=== PATIENT | female | born 1990 | race American Indian/Alaskan Native ===

== ENCOUNTER 2018-07-19 13:35 | Inpatient (IN) | payer MEDICAID ==
--- NOTE | 2018-07-19 14:12 | C.PDOC ---
History Of Present Illness 27 year old female with a PMHx of bipolar disorder brought in by EMS complaining of feeling depressed. She denies any suicidal or homicidal ideation. On arrival to the ED patient was found to be tachycardic, with HR in the 140s. In triage patient denied any drug or alcohol use. When asked if she has any palpitations or pain, patient is not offering any other information. Patient is resting comfortably on stretcher, refusing to answer further questions. <Mary Paul - Last Filed: 07/19/18 19:04> History Per: Patient History/Exam Limitations: other (uncooperative) Onset/Duration Of Symptoms: Days Current Symptoms Are (Timing): Still Present Associated Symptoms: Depression. denies: Suicidal Thoughts, Suicidal Plan <Mary Paul - Last Filed: 07/19/18 19:04> <Otoniel Cruz - Last Filed: 07/19/18 19:51> Time Seen by Provider: 07/19/18 13:40 Chief Complaint (Nursing): Psychiatric Evaluation Past Medical History Reviewed: Historical Data, Nursing Documentation, Vital Signs Vital Signs: Last Vital Signs Temp 98.7 F 07/19/18 13:37 Pulse 144 H 07/19/18 13:37 Resp 16 07/19/18 13:37 BP 139/98 H 07/19/18 13:37 Pulse Ox 99 07/19/18 13:37 - Medical History PMH: Bipolar Disorder Surgical History: No Surg Hx Family History: States: Unknown Family Hx - Social History Hx Tobacco Use: No Hx Alcohol Use: Yes Hx Substance Use: No - Immunization History Hx Tetanus Toxoid Vaccination: No Hx Influenza Vaccination: No Hx Pneumococcal Vaccination: No <Mary Paul - Last Filed: 07/19/18 19:04> Vital Signs: Last Vital Signs Temp 98.7 F 07/19/18 13:37 Pulse 99 H 07/19/18 17:15 Resp 11 L 07/19/18 17:15 BP 112/84 07/19/18 17:15 Pulse Ox 99 07/19/18 19:04 <Otoniel Cruz - Last Filed: 07/19/18 19:51> Review Of Systems Review Of Systems: ROS cannot be obtained secondary to pt's inabilty to answer questions. <Liz Pauljorie C - Last Filed: 07/19/18 19:04> Physical Exam - Physical Exam Appears: Non-toxic, No Acute Distress Skin: Warm, Dry, No Diaphoretic, No Pale Head: Atraumatic, Normacephalic Eye(s): bilateral: Normal Inspection, PERRL, EOMI Oral Mucosa: Moist Neck: Normal ROM Chest: Symmetrical Cardiovascular: Rhythm Regular ( Tachycardic), No Friction Rub Respiratory: Normal Breath Sounds, No Accessory Muscle Use, Other (No respiratory distress) Gastrointestinal/Abdominal: Soft, No Tenderness, No Distention Back: Normal Inspection, No CVA Tenderness Extremity: Normal ROM, No Swelling Extremity: Bilateral: Atraumatic, Normal ROM Pulses: Left Dorsalis Pedis: Normal, Right Dorsalis Pedis: Normal Neurological/Psych: Normal Motor, Normal Sensation, Other (Bizarre affect) Gait: Steady <Mary Paul C - Last Filed: 07/19/18 19:04> ED Course And Treatment - Laboratory Results Result Diagrams: 07/19/18 14:32 07/19/18 14:32 ECG: Interpreted By Me, Viewed By Me ECG Rhythm: Sinus Tachycardia Interpretation Of ECG: Normal ST waves, Normal axis Rate From EC O2 Sat by Pulse Oximetry: 99 (RA) Pulse Ox Interpretation: Normal - Other Rad CXR X-Ray: Read By Radiologist Interpretation: Accession No. : [id number]. Patient Name / ID : RAN ELLIOTT / [id number]. Exam Date : 07/19/2018 15:54:55 ( Approved ). Study Comment : Sex / Age : F / 27Y. Creator : Amna Billings MD. Dictator : Amna Billings MD. Crop Nutrition Scientist : Data Lead : Amna Billings MD. Approver2 : Report Date : 07/19/2018 16:07:28. My Comment : . Date of service: 07/19/2018. HISTORY: SOB, tachycardia. COMPARISON: No prior. FINDINGS: LUNGS: The lungs are well inflated and clear. PLEURA: No pleural effusions or pneumothorax. CARDIOVASCULAR: The heart is normal in size. No aortic atherosc lerotic calcifications present. OSSEOUS STRUCTURES: Within normal limits for the patient's age. VISUALIZED UPPER ABDOMEN: Normal. OTHER FINDINGS: None. IMPRESSION: No active pulmonary disease. - CT Scan/US CT Chest Other Rad Studies (CT/US): Read By Radiologist, Radiology Report Reviewed CT/US Interpretation: Accession No. : [id number]. Patient Name / ID : RAN ELLIOTT / [id number]. Exam Date : 07/19/2018 16:55:59 ( Approved ). Study Comment : Sex / Age : F / 27Y. Creator : Heron Ojeda MD. Dictator : Heron Ojeda MD. Crop Nutrition Scientist : Data Lead : Heron Ojeda MD. Approver2 : Report Date : 07/19/2018 17:25:17. My Comment : . Date of service: 07/19/2018. PROCEDURE: CT Chest with contrast (Pulmonary Angiogram). HISTORY: Tachycardia, tachypnea. COMPARISON: None available. TECHNIQUE: Axial computed tomography images were obtained of the chest in the pulmonary arterial phase of enhancement. Coronal and sagittal reformatted images were created and reviewed. Intravenous contrast dose: 100 cc Visipaque 320 contrast material. Radiation dose: Total exam DLP = 529.18 mGy-cm. This CT exam was performed using one or more of the following dose reduction techniques: Automated exposure control, adjustment of the mA and/or kV according to patient size, and/or use of iterative reconstruction technique. FINDINGS: PULMONARY ARTERIES: Unremarkable. Visualized pulmonary trunk, right and left main, lobar, segmental and proximal subsegmental branches of the pulmonary arteries are well opacified with no definitive evidence of acute central pulmonary embolism. The pulmonary trunk measures approximately 2.8 cm. AORTA: No acute findings. No thoracic aortic aneurysm. Ascending thoracic aorta measures approximately 2.84 cm and descending thoracic aorta measures approximately 2.0 cm No aortic atherosclerotic calcification or mural plaque present. LUNGS: Unremarkable. No nodule, mass or pulmonary consolidation. PLEURAL SPACES: Unremarkable. No effusion or pneumothorax. HEART: Unremarkable. No cardiomegaly. No significant pericardial effusion. LYMPH NODES: No significant mediastinal or hilar adenopathy. Trachea midline and patent with no large central endoluminal lesions.. There is a small hiatal hernia with slight wall thickening of distal esophagus likely due to protrusion gastric mucosa. Possibility of esophagitis not excluded. The. BONES, CHEST WALL: Unremarkable. No fracture or destructive lesion. OTHER FINDINGS: Unremarkable. IMPRESSION: No evidence of acute central pulmonary embolus. <Mary Paul - Last Filed: 07/19/18 19:04> - Laboratory Results Result Diagrams: 07/19/18 14:32 07/19/18 14:32 Lab Results: Total Bilirubin 0.7 mg/dL (0.2-1.3) 07/19/18 14:32 AST 22 U/L (14-36) 07/19/18 14:32 ALT 24 U/L (9-52) 07/19/18 14:32 Alkaline Phosphatase 131 U/L (38-126) H 07/19/18 14:32 Total Protein 8.8 g/dL (6.3-8.3) H 07/19/18 14:32 Albumin 4.9 g/dL (3.5-5.0) 07/19/18 14:32 Globulin 3.9 gm/dL (2.2-3.9) 07/19/18 14:32 Albumin/Globulin Ratio 1.3 (1.0-2.1) 07/19/18 14:32 Urine Color Paulina (YELLOW) 07/19/18 14:34 Urine Clarity Clear (Clear) 07/19/18 14:34 Urine pH 5.0 (5.0-8.0) 07/19/18 14:34 Ur Specific [place] 1.035 (1.003-1.030) H 07/19/18 14:34 Urine Protein 2+ mg/dL (NEGATIVE) H 07/19/18 14:34 Urine Glucose (UA) Normal mg/dL (Normal) 07/19/18 14:34 Urine Ketones Trace mg/dL (NEGATIVE) 07/19/18 14:34 Urine Blood Negative (NEGATIVE) 07/19/18 14:34 Urine Nitrate Negative (NEGATIVE) 07/19/18 14:34 Urine Bilirubin 2+ (NEGATIVE) H 07/19/18 14:34 Urine Urobilinogen 4.0 mg/dL (0.2-1.0) H 07/19/18 14:34 Ur Leukocyte Esterase Neg Morena/uL (Negative) 07/19/18 14:34 Urine WBC (Auto) 11 /hpf (0-5) H 07/19/18 14:34 Urine RBC (Auto) 4 /hpf (0-3) H 07/19/18 14:34 Ur Squamous Epith Cells 5 /hpf (0-5) 07/19/18 14:34 Urine Bacteria Rare (<OCC) 07/19/18 14:34 Urine HCG, Qual Negative (NEGATIVE) 07/19/18 14:34 Urine HCG, Qual Negative (NEGATIVE) 07/19/18 14:34 <Otoniel Cruz - Last Filed: 07/19/18 19:51> Medical Decision Making Medical Decision Making: Initial Plan: - EKG - CMP - Magnesium - Phosphorous - Alcohol serum - UDS - CBC - Urinalysis - Placed on continuous workforce management coordinator - will keep patient on 1:1 obs - Pending crisis evaluation 1 mg IV Ativan and IV fluids infusing. HR remains elevated, 140-150s. Added on thyroid panel to rule out thyrotoxicosis Second mg Ativan given. Repeat vitals demonstrate HR now improved, still in the 100s. Added on CT Chest to rule out PE. TSH is normal and patient has no fever and is not in thyroid storm. 17:45 CT is negative for PE. Patient is medically cleared for psychiatric admission. Crisis notified and will evaluate patient. The patient is A&O x3, states she has a history of schizophrenia and has not taken her medications in 6 months. Crisis consulted. <Mary Paul - Last Filed: 07/19/18 19:04> Disposition - Disposition Disposition Time: 18:55 <Mary Paul - Last Filed: 07/19/18 19:04> Discussed With : Chio Gallo Comment: accepted the pt on his service and took over thecare at 7:50 PM Doctor Will See Patient In The: Hospital Counseled Patient/Family Regarding: Studies Performed, Diagnosis <Otoniel Cruz - Last Filed: 07/19/18 19:51> - Disposition Disposition: HOSPITALIZED Condition: FAIR Forms: [facility] (Lithuanian) - Clinical Impression Clinical Impression: Schizophrenia - PA / EMERGENCY MANAGEMENT SYSTEM DIRECTOR / Resident Statement MD/DO has reviewed & agrees with the documentation as recorded. - Scribe Statement The provider has reviewed the documentation as recorded by the Scribdorie Garner All medical record entries made by the Scribe were at my direction and personally dictated by me. I have reviewed the chart and agree that the record accurately reflects my personal performance of the history, physical exam, medical decision making, and the department course for this patient. I have also personally directed, reviewed, and agree with the discharge instructions and disposition. <Mary Paul - Last Filed: 07/19/18 19:04> Physician Patient Turnover Patient Signed Over To: Otoniel Cruz Handoff Comments: Pending Crisis eval and disposition <Mary Paul - Last Filed: 07/19/18 19:04> Decision To Admit <Mary Paul - Last Filed: 07/19/18 19:04> - Pt Status Changed To: Hospital Disposition Of: Inpatient - Admit Certification Admit to Inpatient:: After my assessment, the patient will require hospitalization for at least two midnights. This is because of the severity of symptoms shown, intensity of services needed, and/or the medical risk in this patient being treated as an outpatient. - InPatient: Physician Admission Certification: I certify that this patient requires 2 or more midnights of care for the following reason:: After my assessment, the patient will require hospitalization for at least two midnights. This is because of the severity of symptoms shown, intensity of services needed, and/or the medical risk in this patient being treated as an outpatient. - . Bed Request Type: Psychiatry Admitting Physician: Chio Gallo <Otoniel Cruz - Last Filed: 07/19/18 19:51> - . Patient Diagnosis: Schizophrenia
[2018-07-19] MEDS ORDERED: Sodium Chloride 0.9% 1,000 ML IV ONE (14:31)
[2018-07-19 14:37] LABS: BASO % 0.5 % (0.0-2.0); EOS % 0.1 % (0.0-4.0); LYMPH # 1.4 K/uL (1.0-4.3); LYMPH % 16.3 % (20.0-40.0); MEAN CELL VOLUME 88.5 fL (81.0-99.0); MEAN CORPUSCULAR HEMOGLOBIN 29.5 pg (27.0-31.0); MEAN CORPUSCULAR HGB CONC 33.3 g/dL (33.0-37.0); MEAN PLATELET VOLUME 9.6 fL (7.2-11.7); MONO # 0.7 K/uL (0.0-0.8); MONO % 8.8 % (0.0-10.0); NEUT # 6.2 K/uL (1.8-7.0); NEUT % 74.3 % (50.0-75.0); RBC 5.43 Mil/uL (3.80-5.20); RED CELL DISTRIBUTION WIDTH 13.7 % (11.5-14.5); WHITE BLOOD COUNT 8.4 K/uL (4.8-10.8)
[2018-07-19] MEDS ORDERED: Sodium Chloride 0.9% 1,000 ML ONE (14:37)
[2018-07-19 14:48] LABS: HCG,QUALITATIVE URINE NEGATIVE (NEGATIVE)
[2018-07-19 14:50] LABS: SQUAMOUS EPITHIAL 5 /hpf (0-5); URINE BACTERIA RARE (<OCC); URINE BILIRUBIN 2+ (NEGATIVE); URINE BLOOD NEGATIVE (NEGATIVE); URINE CLARITY Clear (Clear); URINE COLOR Amber (YELLOW); URINE GLUCOSE (UA) NORMAL (Normal); URINE LEUKOCYTE ESTERASE NEG Leu/uL (Negative); URINE PROTEIN 2+ mg/dL (NEGATIVE)
[2018-07-19 14:52] LABS: ALB/GLOB RATIO 1.3 (1.0-2.1); ALBUMIN 4.9 g/dL (3.5-5.0); ALT/SGPT 24 U/L (9-52); AST/SGOT 22 U/L (14-36); BLOOD UREA NITROGEN 12 mg/dL (7-17); CALCIUM 9.6 mg/dl (8.6-10.4); GFR NON-AFRICAN AMERICAN > 60
[2018-07-19 14:56] LABS: BARBITURATES, UR NEGATIVE (NEGATIVE); BENZODIAZEPINES, UR NEGATIVE (NEGATIVE); OPIATES, UR NEGATIVE (NEGATIVE); PHENCYCLIDINE, UR NEGATIVE (NEGATIVE)
--- NOTE | 2018-07-19 16:11 | RAD ---
Date of service: 07/19/2018 HISTORY: SOB, tachycardia COMPARISON: No prior. FINDINGS: LUNGS: The lungs are well inflated and clear. PLEURA: No pleural effusions or pneumothorax. CARDIOVASCULAR: The heart is normal in size. No aortic atherosclerotic calcifications present. OSSEOUS STRUCTURES: Within normal limits for the patient's age. VISUALIZED UPPER ABDOMEN: Normal. OTHER FINDINGS: None. IMPRESSION: No active pulmonary disease.
[2018-07-19] MEDS ORDERED: Iodixanol 320 MG/ML 100 ML BOTTLE IV ONE (16:39)
--- NOTE | 2018-07-19 17:28 | CT ---
Date of service: 07/19/2018 PROCEDURE: CT Chest with contrast (Pulmonary Angiogram) HISTORY: Tachycardia, tachypnea COMPARISON: None available. TECHNIQUE: Axial computed tomography images were obtained of the chest in the pulmonary arterial phase of enhancement. Coronal and sagittal reformatted images were created and reviewed. Intravenous contrast dose: 100 cc Visipaque 320 contrast material. Radiation dose: Total exam DLP = 529.18 mGy-cm. This CT exam was performed using one or more of the following dose reduction techniques: Automated exposure control, adjustment of the mA and/or kV according to patient size, and/or use of iterative reconstruction technique. FINDINGS: PULMONARY ARTERIES: Unremarkable. Visualized pulmonary trunk, right and left main, lobar, segmental and proximal subsegmental branches of the pulmonary arteries are well opacified with no definitive evidence of acute central pulmonary embolism. The pulmonary trunk measures approximately 2.8 cm. AORTA: No acute findings. No thoracic aortic aneurysm. Ascending thoracic aorta measures approximately 2.84 cm and descending thoracic aorta measures approximately 2.0 cm No aortic atherosclerotic calcification or mural plaque present. LUNGS: Unremarkable. No nodule, mass or pulmonary consolidation. PLEURAL SPACES: Unremarkable. No effusion or pneumothorax. HEART: Unremarkable. No cardiomegaly. No significant pericardial effusion. LYMPH NODES: No significant mediastinal or hilar adenopathy. Trachea midline and patent with no large central endoluminal lesions.. There is a small hiatal hernia with slight wall thickening of distal esophagus likely due to protrusion gastric mucosa. Possibility of esophagitis not excluded. The BONES, CHEST WALL: Unremarkable. No fracture or destructive lesion OTHER FINDINGS: Unremarkable. IMPRESSION: No evidence of acute central pulmonary embolus. The
[2018-07-19 20:15] VITALS: O2SAT 100
--- NOTE | 2018-07-19 22:46 | PCM.BM ---
<Jennifer Hays - Last Filed: 07/19/18 22:43> Treatment Plan Problems - Problems identified on initial assessmt Self-Care Deficit Date Initiated: 07/19/18 Time Initiated: 22:43 Assessment reference: NA Status: Active Social Isolation Date Initiated: 07/19/18 Time Initiated: 22:43 Assessment reference: NA Status: Active Treatment assets and liabiliti Patient Assests: cooperative, ADL independent, physically healthy Patient Liabilities: live alone, substance abuse (THC), imparied memory - Milieu Protocol Maintain good personal hygiene: daily Encourage regular showers, daily Remind patient to perform daily oral care, daily Assist patient to perform ADL's Conduct patient checks and document Observation sheet: Q15 minutes Maintain personal safety: every shift Educate patient to report safety concerns to staff, every shift Monitor environment for contraband/sharps Medication safety: Monitor for expected outcome, potential side effects: every shift, Assess barriers to learning: every shift, Assess readiness for medication education: every shift <Gardenia Longoria - Last Filed: 07/22/18 11:48> Family Contact Family involvement: Patient does not wish Family/SO involvement Family contact: Patient declines to allow family contact at present - Goals for Treatment Patient goals for treatment: "I want to go to an outpatient program." Discharge/Continuing Care - Education Needs Education Needs: Patient Medication, Patient Diagnosis/Disease Process, Patient Coping Skills, Patient Placement options, Patient Community resources - Discharge Discharge Criteria: Free of Suicidal thoughts, Normal sleep pattern, Ability to care for self, Reduction of target symptoms Discharge to:: Home - Treatment Team Participation Discussed with Family/SO: No Was Patient/Family/SO present at Treatment Team Meeting: Yes <Chio Gallo - Last Filed: 07/23/18 13:25> - Diagnosis (1) Schizophrenia Status: Acute Interventions: 07/23/18 13:25 * Assess/adjust medications daily and /or as needed * See patient on an individual basis 7x/week to assess status of hallucinations * Discuss risks, benefits, side effects and alternatives of medications *
[2018-07-19] MEDS ORDERED: Pneumococcal 23-Valent Vaccine IM ONE (23:49)
[2018-07-19] MEDS ORDERED: Influenza Vaccine 60 mcg/0.5 mL SYR (4YR UP) IM ONE (23:51)
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
[2018-07-20 12:12] LABS: FREE T4 1.36 ng/dL (0.78-2.19)
--- NOTE | 2018-07-22 01:10 | PCM.PYCHPN ---
Psychiatric Progress Note - Psychiatric Progress Note Patient seen today, length of contact: 15 min Patient Chief Complaint: "I am better" Problems Identified/Issues Discussed: The pt is seen, chart reviewed, case discussed with staff. The pt is compliant with medications and reports no side-effects. Symptoms are improving but needs more time to stabilize. Still delusional and odd Support given, psycho-education provided. After care discussed. She put in a 48 hr note and wants to leave, but has no insight and it is risky Medication Change: Yes (increase risperdal to 2 mg) Medical Record Reviewed: Yes Mental Status Examination - Cognitive Function Orientation: Person, Place, Situation, Time Memory: Intact Attention: WNL Concentration: Poor Association: WNL Fund of Knowledge: WNL - Mood Mood: Anxious - Affect Affect: Constricted - Speech Speech: Appropriate - Formal Thought Process Formal Thought Process: Hallucinations, Delusions, Paranoia, Loosening of associations - Suicidal Ideation Suicidal Ideation: No - Homicidal Ideation Homicidal Ideation: No Goal/Treatment Plan - Goal/Treatment Plan Need for Continued Stay: Discharge may exacerbated symptoms, Severe functional impairment Progress Toward Problem(s) and Goals/Treatment Plan: Start risperidone for psychosis Attend groups and activities Support and psychoeducation Individual therapy STD tests ordered Consider Depo medications Consider ICMS Try to get collateral information
--- NOTE | 2018-07-22 13:48 | PCM.PYCHPN ---
Psychiatric Progress Note - Psychiatric Progress Note Patient seen today, length of contact: 15 min Patient Chief Complaint: "I need to go to ER" Problems Identified/Issues Discussed: The pt is seen, chart reviewed, case discussed with staff. Support and psychoeducation given, she is reluctant to take meds No SEs reported form meds She is now somatically delusional - thinks she is "overheated" and that she needs to go to ER She had no sxs to warrant even a medical consult She is offered [facility] as she was too anxious. Medication Change: Yes (Risperdal 2 mg) Medical Record Reviewed: Yes Mental Status Examination - Cognitive Function Orientation: Person, Place, Situation, Time Memory: Intact Attention: WNL Concentration: Poor Association: WNL Fund of Knowledge: WNL - Mood Mood: Anxious - Affect Affect: Constricted - Speech Speech: Appropriate - Formal Thought Process Formal Thought Process: Hallucinations, Delusions, Paranoia, Loosening of associations - Suicidal Ideation Suicidal Ideation: No - Homicidal Ideation Homicidal Ideation: No Goal/Treatment Plan - Goal/Treatment Plan Need for Continued Stay: Discharge may exacerbated symptoms, Severe functional impairment Progress Toward Problem(s) and Goals/Treatment Plan: Increase risperidone for psychosis Attend groups and activities Support and psychoeducation Individual therapy STD tests ordered Consider Depo medications Consider ICMS Try to get collateral information
[2018-07-22] MEDS ORDERED: DiphenhydrAMINE 50 mg/ml Inj IM PRN (23:52)
--- NOTE | 2018-07-23 13:33 | PCM.PYCHPN ---
Psychiatric Progress Note - Psychiatric Progress Note Patient seen today, length of contact: 16 min Patient Chief Complaint: "I am tired" Problems Identified/Issues Discussed: The pt is seen, chart reviewed, case discussed with staff. Support and psychoeducation given again No SEs from medications, risks discussed. However, she refused the Risperdal last night She is given info on why she needs it Also, she took a haldol IM due to agitation, again for the same reason, "I need to go to ER" She was OK and there was no reason to go to ER Likely somatic delusions along with her persecutory ones. Medication Change: Yes (Risperdal 2 mg, klonopin added ) Medical Record Reviewed: Yes Mental Status Examination - Cognitive Function Orientation: Person, Place, Situation, Time Memory: Intact Attention: WNL Concentration: Poor Association: WNL Fund of Knowledge: WNL - Mood Mood: Anxious - Affect Affect: Constricted - Speech Speech: Appropriate - Formal Thought Process Formal Thought Process: Hallucinations, Delusions, Paranoia, Loosening of associations - Suicidal Ideation Suicidal Ideation: No - Homicidal Ideation Homicidal Ideation: No Goal/Treatment Plan - Goal/Treatment Plan Need for Continued Stay: Discharge may exacerbated symptoms, Severe functional impairment Progress Toward Problem(s) and Goals/Treatment Plan: Increase risperidone for psychosis Attend groups and activities Support and psychoeducation Individual therapy STD tests ordered Consider Depo medications Consider ICMS Try to get collateral information
--- NOTE | 2018-07-24 11:02 | PCM.PYCHPN ---
Psychiatric Progress Note - Psychiatric Progress Note Patient seen today, length of contact: 18 min Patient Chief Complaint: "I am fine" Problems Identified/Issues Discussed: The pt is seen, chart reviewed, case discussed with staff. She is VERY sick: she has somatic and persecutory delusions, very rigid but fluctuates a lot as she hides sometimes. Then, it pops up and she demands to go to ER She refuses to take some meds, i.e. refused Risperdal but then took the next one. She isolates self a lot, looks a bit depressed but it's more likely due to her paranoia She finally agreed to take the Haldol DECANOATE monthly injection, which will help b/c she will likely be non-compliant upon discharge as she has low insight into her condition She also said her mother is coming from [place] and we will have a family session. No SEs Not suicidal but she is disorganized and will likely risk herself. For instance she is now asking for STD test (which was done already) b/c she had unprotected sex outside. Medication Change: Yes (Risperdal 2 mg, klonopin added ) Medical Record Reviewed: Yes Mental Status Examination - Cognitive Function Orientation: Person, Place, Situation, Time Memory: Intact Attention: Poor Concentration: Poor Association: WNL Fund of Knowledge: WNL - Mood Mood: Anxious, Other (irate) - Affect Affect: Constricted - Speech Speech: Appropriate - Formal Thought Process Formal Thought Process: Hallucinations, Delusions, Paranoia, Loosening of associations - Suicidal Ideation Suicidal Ideation: No - Homicidal Ideation Homicidal Ideation: No Goal/Treatment Plan - Goal/Treatment Plan Need for Continued Stay: Discharge may exacerbated symptoms, Severe functional impairment Progress Toward Problem(s) and Goals/Treatment Plan: Start haldol Dec 50 mg Risperdal is 2 mg for a little more time Attend groups and activities Support and psychoeducation Individual therapy STD tests ordered and done Consider ICMS Try to get collateral information
[2018-07-25 06:39] VITALS: RESP 20
--- NOTE | 2018-07-25 12:57 | PCM.PYCHPN ---
Psychiatric Progress Note - Psychiatric Progress Note Patient seen today, length of contact: 18 min Patient Chief Complaint: "I am tired" Problems Identified/Issues Discussed: The pt is seen, chart reviewed, case discussed with staff. Support and psychoeducation given Pt is improving slowly and needs more time, still has ongoing symptoms. Hearing voices, low insight, high risk of relapse No SEs from medications, risks discussed. After care discussed Medication Change: No Medical Record Reviewed: Yes Mental Status Examination - Cognitive Function Orientation: Person, Place, Situation, Time Memory: Intact Attention: Poor Concentration: Poor Association: WNL Fund of Knowledge: WNL - Mood Mood: Anxious, Other (irate) - Affect Affect: Constricted - Speech Speech: Appropriate - Formal Thought Process Formal Thought Process: Hallucinations, Delusions, Paranoia, Loosening of associations - Suicidal Ideation Suicidal Ideation: No - Homicidal Ideation Homicidal Ideation: No Goal/Treatment Plan - Goal/Treatment Plan Need for Continued Stay: Discharge may exacerbated symptoms, Severe functional impairment Progress Toward Problem(s) and Goals/Treatment Plan: Haldol Dec 50 mg Risperdal is 2 mg for a little more time Attend groups and activities Support and psychoeducation Individual therapy STD tests ordered and done Consider ICMS Try to get collateral information Estimated Date of D/C: 07/29/18
--- NOTE | 2018-07-26 14:25 | PCM.PYCHPN ---
Psychiatric Progress Note - Psychiatric Progress Note Patient seen today, length of contact: 16 min Patient Chief Complaint: "I am dizzy" Problems Identified/Issues Discussed: The pt is seen, chart reviewed, case discussed with staff. The pt is compliant with medications and reports no side-effects. Symptoms are improving but needs more time to stabilize. Pt attends groups and activities. Support given, psycho-education provided. After care discussed. SW prepared a package for her Waiting for mo but then again she gets into poor insight periods and demands d/c but then agrees to stay. Medication Change: No Medical Record Reviewed: Yes Mental Status Examination - Cognitive Function Orientation: Person, Place, Situation, Time Memory: Intact Attention: Poor Concentration: Poor Association: WNL Fund of Knowledge: WNL - Mood Mood: Anxious, Other (irate) - Affect Affect: Constricted - Speech Speech: Appropriate - Formal Thought Process Formal Thought Process: Hallucinations, Delusions, Paranoia, Loosening of associations - Suicidal Ideation Suicidal Ideation: No - Homicidal Ideation Homicidal Ideation: No Goal/Treatment Plan - Goal/Treatment Plan Need for Continued Stay: Discharge may exacerbated symptoms, Severe functional impairment Progress Toward Problem(s) and Goals/Treatment Plan: Haldol Dec 50 mg Risperdal is 2 mg for a little more time Attend groups and activities Support and psychoeducation Individual therapy STD tests ordered and done Consider ICMS Try to get collateral information Estimated Date of D/C: 07/29/18
[2018-07-27 06:09] VITALS: PULSE 83; TEMP 98.3
--- NOTE | 2018-07-27 08:22 | PCM.PYCHPN ---
Psychiatric Progress Note - Psychiatric Progress Note Patient seen today, length of contact: 16 min Medication Change: No Medical Record Reviewed: Yes Mental Status Examination - Cognitive Function Orientation: Person, Place, Situation, Time Memory: Intact Attention: Poor Concentration: Poor Association: WNL Fund of Knowledge: WNL - Mood Mood: Anxious, Other (irate) - Affect Affect: Constricted - Speech Speech: Appropriate - Formal Thought Process Formal Thought Process: Hallucinations, Delusions, Paranoia, Loosening of associations - Suicidal Ideation Suicidal Ideation: No - Homicidal Ideation Homicidal Ideation: No Goal/Treatment Plan - Goal/Treatment Plan Need for Continued Stay: Discharge may exacerbated symptoms, Severe functional impairment Progress Toward Problem(s) and Goals/Treatment Plan: Haldol Dec 50 mg Risperdal is 2 mg for a little more time Attend groups and activities Support and psychoeducation Individual therapy STD tests ordered and done Consider ICMS Try to get collateral information Estimated Date of D/C: 07/29/18
[2018-07-28 06:36] VITALS: BP 99/64
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
--- NOTE | 2018-07-28 18:15 | CARD ---
APPROVED REPORT Date of service: 07/19/2018 EKG Measurement Heart [id number] <Conclusion> Sinus tachycardia Nonspecific T wave abnormality Abnormal ECG
== END 2018-07-28 09:45 | disposition home or self-care (01) | DRG 750 ==
LOC: C.ER 13:35 → C.5E 19:49
PROVIDERS: ADMIT Psychiatry & Neurology Psychiatry; ATTEND Psychiatry & Neurology Psychiatry
DX: F20.9 Schizophrenia, unspecified (principal); Z91.19 Patient's noncompliance with other medical treatment and regimen; F12.10 Cannabis abuse, uncomplicated